=== PATIENT | male | born 1965 | race Caucasian/White ===

== ENCOUNTER → 2024-01-22 | Outpatient (CLI) | payer BC, SELFPAY ==
--- NOTE | 2024-01-22 14:48 | CT_ITS ---
STUDY: CT CHEST WITHOUT CONTRAST REASON FOR EXAM: Male, 58 years old. DIZZINESS LIMITED CHEST OVER READ ONLY RADIATION DOSAGE (If Supplied By Facility): CTDIvol = ( 12.19 ) mGy, DLP = ( 219.42 ) mGycm TECHNIQUE: Transaxial imaging was performed without the administration of intravenous contrast material. Individualized dose optimization techniques were used for this CT. COMPARISON: No relevant priors. FINDINGS: CHEST Noncalcified nodules are seen in the lungs. A repeat CT scan following IV contrast of the thorax is recommended for further evaluation. There is no demonstrated pleural abnormality. Minimal coronary calcification is seen. Multiple mediastinal lymph nodes. There is a 2.2 cm x 2.7 cm enlarged lymph node in the subcarinal region. Small bilateral hilar lymph nodes. Normal hilar regions. Normal unenhanced pulmonary arteries. Normal aorta arch and descending thoracic aorta. Normal osseous structures. Fatty infiltration of the liver. CT/Limited Chest CT Cardiac Only IMPRESSION: Minimal coronary artery calcification. Pulmonary nodules as described. A CT scan of the chest with IV contrast is recommended for further evaluation. Mildly enlarged mediastinal lymph nodes. Electronically Signed: Mitesh More MD at 14:04 EDT ,
--- NOTE | 2024-01-23 07:55 | CA.SCORE ---
Calcium Scoring Date of Study:: 01/23/24 Indications Indications: Dizziness Coronary Calcium Scoring: High-resolution Computed Tomographic imaging of the chest was performed on [ 01/22/24], with particular attention paid to the coronary arteries. Images from the examination were analyzed for the presence and extent of coronary artery calcification , using coronary calcium quantification software. The patient tolerated the procedure well and there were no complications. The results of the coronary calcification analysis are provided below. Findings Coronary Artery Left Main (LM): 0 Left Anterior Descending (LAD): 0 Left Circumflex (LCX): 0 Right Coronary Artery (RCA): 0 Total Agatston Score: 0 Percentile Rankin Calcium Scoring Interpretation: Different methods to categorize the overall amount of coronary plaque. Overall amount CAC SIS Visual of coronary plaque P1 Mild -100 <2 1-2 vessels with mild amount of plaque P2 Moderate 101-300 3-4 1-2 vessels with moderate amount, 3 vessels with mild amount of plaque P3 Severe 301-999 5-7 3 vessels with moderate amount, 1 vessel with severe amount of plaque P4 Extensive >1000 >8 2-3 vessels with severe amount of plaque Conclusion: No atherosclerotic plaquing noted
== END | disposition home or self-care (01) ==
LOC: CT 14:40
PROVIDERS: PCP Family Medicine; Referring Provider Physician Assistant; Visit Provider Physician Assistant
DX: R42 Dizziness and giddiness (principal); Z82.49 Family history of ischemic heart disease and other diseases of the circulatory system
CPT/HCPCS: 75571; 76380

== ENCOUNTER → 2024-02-11 | Outpatient (CLI) | payer BC, SELFPAY ==
--- NOTE | 2024-02-11 14:45 | CT_ITS ---
STUDY: CT CHEST WITH CONTRAST REASON FOR EXAM: Male, 58 years old. SOLITARY PULMONARY NODULE RADIATION DOSAGE (If Supplied By Facility): CTDIvol = ( 14.76 ) mGy, DLP = ( 626.62 ) mGycm TECHNIQUE: Transaxial imaging was performed following intravenous administration of IV 100mL Isovue-370. Multiplanar coronal and sagittal images were reformatted. Individualized dose optimization techniques were used for this CT. COMPARISON: Comparison is made with prior study dated January 22, 2024. FINDINGS: CHEST There is a 6.7 mm slightly spiculated nodule in the anterior aspect of the right upper lobe as seen on axial image #64. A similar appearing noncalcified nodule seen in the peripheral lateral aspect of the right upper lobe as seen on axial image #77. A tiny noncalcified nodules also seen in the posterior medial aspect of the left lower lobe as well as abutting the right major fissure. #77. Minimal scarring in the lingular segment of the left upper lobe. There is no demonstrated pleural abnormality. Normal heart and pericardium. Once again, there is evidence of mediastinal as well as bilateral hilar lymphadenopathy. Normal hilar regions. Normal unenhanced pulmonary arteries. Normal aorta arch and descending thoracic aorta. Normal osseous structures. There is no demonstrated abnormality of the visualized upper abdomen. CT/Chest WITH Contrast IMPRESSION: Mediastinal and bilateral hilar lymphadenopathy. Pulmonary nodules as described. Correlation with PET scan recommended. Electronically Signed: Mitesh More MD at 12:32 EDT ,
== END | disposition home or self-care (01) ==
PROVIDERS: PCP Family Medicine; Referring Provider Physician Assistant; Visit Provider Physician Assistant
DX: R91.1 Solitary pulmonary nodule (principal); R91.8 Other nonspecific abnormal finding of lung field
CPT/HCPCS: 71260; Q9967

== ENCOUNTER → 2024-03-11 | Outpatient (CLI) | payer BC, SELFPAY ==
--- NOTE | 2024-03-11 09:30 | PET_ITS ---
EXAMINATION: FDG-PET/CT ? INDICATIONS: 58-year-old male with a history of mediastinal adenopathy. ? COMPARISON EXAMINATION: CT of the chest study dated 02/11/2024. ? INDEX LESION SIZE SUV INTERPRETATION Left periclavicular region 19.1 mm 5.1 Fulfills quantitative criteria for viable neoplasm, histopathologic analysis recommended ? Mediastinum, bilateral thoracic perihilum 25.2 mm largest 6.3 max Warrants histopathologic investigation secondary to quantitative degree of uptake ? TECHNIQUE: Following the intravenous administration of 14.46 mCi of F-18 deoxyglucose via the left hand, multiplanar image acquisitions of the head, neck, chest, abdomen and pelvis to the level of the midthigh, obtained at one-hour post radiopharmaceutical administration contemporaneously interpreted with the current CT of the chest, abdomen and pelvis dated 03/11/[address] study of the chest dated 02/11/2024 via coregistration reveal: ? SERUM GLUCOSE LEVEL:? 74 mg/dL? HEIGHT:?? 72 inches WEIGHT:?? 203 pounds ? FINDINGS: ? HEAD/NECK:? There is no evidence of abnormal increased glucose metabolism in the pharyngeal mucosal space, parapharyngeal space, oropharynx, bilateral-lateral and anterior neck, hypopharynx and distribution of the larynx. ? The visualized portion of the cerebral cortical-subcortical structures demonstrate symmetric and preserved glucose metabolism. ? CHEST:? Facilitated FDG concentration is noted in the left periclavicular region.? The calculated standard uptake value is 5.1.? Maximal axial diameter of the metabolic, morphologic abnormality is 19.1 mm.? Facilitated FDG concentration is noted in the anterior, middle, and posterior mediastinum as well as bilateral thoracic perihilum.? The calculated standard uptake value is 6.3.? Maximal axial diameter of the largest corresponding soft tissue density is 25.2 mm.? There are no pulmonary densities-nodules defined in the right and left hemithorax with quantitatively significant increased FDG uptake. ? CT of the chest demonstrates the following anatomic characteristics: Bilateral axillary soft tissue densities are nonglucose avid. Mediastinal soft tissue reveals no evidence of increased glucose uptake. There are no parenchymal densities-nodules identified in the right and left hemithorax with quantitatively significant increased FDG concentration.. ? ABDOMEN/PELVIS:? Normal physiologic distribution of the radiopharmaceutical is identified in the hepatic and splenic parenchyma, both renal units, urinary bladder, and visualized intestinal tract.? ? CT of the abdomen and pelvis is remarkable for the following: The urinary bladder is distended.? The gallbladder is surgically absent. There is fatty metamorphosis of the hepatic parenchyma.? Pelvic arterial calcification is observed.? Right and left inguinal soft tissue densities are ametabolic. ? SKELETAL:? There is no evidence of quantitatively significant enhanced glucose metabolism on meticulous inspection of the appendicular and axial skeletal structures. ? Degenerative changes defined in the thoracic and lumbar spine demonstrate no evidence of increased glucose metabolism. There are no sclerotic, mixed sclerotic-lytic, or primarily lytic changes defined in the axial skeletal structures with evidence of increased FDG uptake. ? PET/PET/CT Tumor Base -Thigh Init IMPRESSION: 1. Increased FDG concentration defined in the left periclavicular region and mediastinal structures-thoracic perihilum may warrant histopathologic investigation secondary to the quantitative degree of uptake. (Neil et al, Journal of Clinical Oncology, 16:2142, 1998). 2.? No other quantitatively significant hypermetabolic abnormalities are noted. Electronic Signature Giancarlo Porter D.O. Accurate Quantification of SUVs for this report are calculated using the exclusive [employer]. ([place] Patent No. [id number] 983 B2 [phone] [place] patent [phone]). Standardization and correction of the FDG SUV metric via [employer] technology allow for vendor non-specific objective quantitative examination comparison and optimization of the sensitivity and specificity of the FDG PET-CT examination. [email or web address] Electronically Signed: Giancarlo Porter DO at 22:33 EDT ,
== END | disposition home or self-care (01) ==
PROVIDERS: PCP Family Medicine; Referring Provider Internal Medicine Critical Care Medicine; Visit Provider Internal Medicine Critical Care Medicine
DX: R59.0 Localized enlarged lymph nodes (principal)
CPT/HCPCS: 78815; A9552

== ENCOUNTER → 2024-03-24 | Outpatient (CLI) | payer BC, SELFPAY ==
[2024-03-24 11:31] LABS: Platelet Count 180 K/mm3 (150-450)
[2024-03-24 11:54] LABS: Partial Thromboplast Time 31.4 Seconds (24.1-36.2)
== END | disposition home or self-care (01) ==
PROVIDERS: PCP Family Medicine; Referring Provider Nurse Practitioner Acute Care; Visit Provider Nurse Practitioner Acute Care
DX: R06.00 Dyspnea, unspecified (principal); I48.91 Unspecified atrial fibrillation; R59.0 Localized enlarged lymph nodes
CPT/HCPCS: 36415; 85049; 85610; 85730